=== PATIENT | female | born 1975 | race Hispanic/Latino ===

== ENCOUNTER → 2018-06-22 | Outpatient (CLI) | payer BC ==
[~2018-06-22] VITALS: Ht 12.7 cm; Wt 119.3 kg
== END | disposition home or self-care (01) ==
LOC: DTH 08:39
PROVIDERS: ATTEND Surgery
DX: I10 Essential (primary) hypertension (principal); E66.01 Morbid (severe) obesity due to excess calories
CPT/HCPCS: 97802

== ENCOUNTER → 2018-07-02 | Outpatient (CLI) | payer BC | END | disposition home or self-care (01) | LOC: DTH 08:40 | PROVIDERS: ATTEND Surgery | DX: I10 Essential (primary) hypertension (principal); E66.01 Morbid (severe) obesity due to excess calories | CPT/HCPCS: 97803 ==

== ENCOUNTER 2018-07-16 06:45 | Inpatient (IN) | payer BC ==
[2018-07-10 17:11] VITALS: BP 120/81
[~2018-07-16] VITALS: Ht 162.6 cm; Wt 114.8 kg
[2018-07-16] VITALS (21 sets, daily range): BP systolic 100–132; BP diastolic 60–86
[2018-07-16] MEDS: CEFOXITIN SODIUM 2 GM VIAL IVP SCH ×2 (06:00→09:38)
[~2018-07-16 06:45] MED LIST: ALBU8.5H8 IH; SUMA100T16 PO
[2018-07-16] MEDS ORDERED: GENTAMICIN SULFATE 80 MG/2 ML VIAL ONE (07:39)
[2018-07-16] MEDS ORDERED: LIDOCAINE HCL MDV 0.5% 50ML VIAL IJ ONE (07:39)
[2018-07-16] MEDS ORDERED: CLINDAMYCIN PHOSPHATE 150 MG/ML 6ML VIAL ONE (07:40)
[2018-07-16] MEDS ORDERED: BUPIVACAINE/EPI/PF 0.5% 30ML VIAL IJ ONE ×2 (07:40→09:58)
[2018-07-16] MEDS ORDERED: METHYLENE BLUE 10 MG/ML AMP ONE (07:40)
[2018-07-16] MEDS ORDERED: LACTATED RINGERS 1000ML 1,000 ML IV ONE (08:08)
[2018-07-16] MEDS ORDERED: SCOPOLAMINE HYDROBROMIDE 1 EACH ADH..PATCH TD ONE (08:37)
[2018-07-16] MEDS ORDERED: SCOPOLAMINE HYDROBROMIDE 1 EACH ADH..PATCH TD SCH (08:45)
[2018-07-16] MEDS ORDERED: KETAMINE 50MG/ML SYRINGE 50 MG/ML DISP.SYRIN IV ONE ×2 (08:56)
[2018-07-16] MEDS ORDERED: MELA5POW MC (08:58)
[2018-07-16] MEDS ORDERED: PROPOFOL 1000 MG/100 ML 100 ML IV ONE (08:59)
[2018-07-16] MEDS ORDERED: LIDOCAINE PF 2% 5ML ABBOJECT ONE (09:03)
[2018-07-16] MEDS ORDERED: PROPOFOL 10 MG/ML 20ML VIAL IV ONE (09:03)
[2018-07-16] MEDS ORDERED: ONDANSETRON HCL 4 MG/2 ML VIAL ONE (09:03)
[2018-07-16] MEDS ORDERED: DEXAMETHASONE SOD PHOSPHATE 10MG/ML 1ML VIAL ONE (09:03)
[2018-07-16] MEDS ORDERED: ROCURONIUM 10MG/1ML SYR 10 MG/ML ML ONE ×2 (09:03→10:02)
[2018-07-16] MEDS ORDERED: FENTANYL CITRATE PF 50 MCG/1 ML 5ML AMP IV ONE (09:04)
[2018-07-16] MEDS ORDERED: MIDAZOLAM HCL 1 MG/ML 2ML VIAL ONE (09:05)
[2018-07-16] MEDS ORDERED: HEPARIN SODIUM 5000UNIT/ML 1ML VIAL SQ SCH (09:15)
[2018-07-16] MEDS: CYANOCOBALAMIN (VITAMIN B-12) 1000 MCG/ML 1ML VIAL IM SCH (09:26)
[2018-07-16] MEDS ORDERED: FAMOTIDINE/PF 20 MG/2 ML VIAL IV ONE (09:44)
[2018-07-16] MEDS ORDERED: MAGNESIUM SULFATE 1 GM/2 ML VIAL ONE (09:54)
[2018-07-16] MEDS ORDERED: EPHEDRINE SULFATE 50 MG/ML AMPULE ONE (10:07)
[2018-07-16] MEDS ORDERED: NEOSTIGMINE 5MG/5ML SYR IV ONE (10:57)
[2018-07-16] MEDS ORDERED: GLYCOPYRROLATE 1 MG/5 ML SYRINGE ONE (10:57)
[2018-07-16] MEDS ORDERED: FENTANYL CITRATE PF 50 MCG/1 ML 2ML VIAL ONE (11:07)
[2018-07-16] MEDS ORDERED: MEPERIDINE-PF 25 MG/ML SYG ONE (11:52)
[2018-07-16] MEDS ORDERED: HYDROMORPHONE PCA 10MG/50 ML ( 0.2 MG/ML ) IV PRN (13:45)
[2018-07-16] MEDS ORDERED: NALOXONE HCL 0.4 MG/1 ML ML IVP PRN (13:45)
[2018-07-16] MEDS ORDERED: SUMATRIPTAN SUCCINATE 25 MG TABLET PO PRN (14:30)
[2018-07-16] MEDS ORDERED: ALBUTEROL SULFATE 0.083% 2.5 MG/3 ML INH IH PRN (14:30)
[2018-07-16] MEDS: ONDANSETRON HCL 4 MG/2 ML VIAL IVP PRN ×2 (14:50→21:26)
[2018-07-16] MEDS: D5LR-20 MEQ KCL 1000 ML 1,000 ML IV SCH (14:58)
[2018-07-16] MEDS ORDERED: FENTANYL CITRATE PF 50 MCG/1 ML 2ML VIAL IVP PRN (15:45)
[2018-07-16] MEDS ORDERED: MORPHINE SULFATE 5 MG/ML VIAL IVP PRN (15:45)
[2018-07-16] MEDS ORDERED: ONDANSETRON HCL 4 MG/2 ML VIAL IVP PRN (15:45)
[2018-07-16] MEDS ORDERED: CALDOLOR 800MG+NS 250ML 250 ML IV SCH (15:45)
[2018-07-16] MEDS: IBUPROFEN 800 MG TAB PO SCH (17:00)
[2018-07-16] MEDS: HEPARIN SODIUM 5000UNIT/ML 1ML VIAL SQ SCH (21:30)
[2018-07-17] MEDS: D5LR-20 MEQ KCL 1000 ML 1,000 ML IV SCH (01:25)
[2018-07-17 04:00] VITALS: BP 114/71
[2018-07-17 07:00] VITALS: BP 115/77
[2018-07-17] MEDS: IBUPROFEN 800 MG TAB PO SCH (08:00)
[2018-07-17] MEDS: HEPARIN SODIUM 5000UNIT/ML 1ML VIAL SQ SCH (09:00)
[2018-07-17] MEDS: CYANOCOBALAMIN (VITAMIN B-12) 1000 MCG/ML 1ML VIAL IM SCH (09:15)
== END 2018-07-17 11:30 | disposition home or self-care (01) | DRG 621 ==
LOC: DAH 06:45 → DAHIP 06:46 → DAH 06:46 → 4BH 12:40
PROVIDERS: ADMIT Surgery; ATTEND Surgery
PROC: 0DB64Z3 Excision of Stomach, Percutaneous Endoscopic Approach, Vertical (ICD-10-PCS; principal; 2018-07-16 09:25)
PROC: 0DNU4ZZ Release Omentum, Percutaneous Endoscopic Approach (ICD-10-PCS; 2018-07-16 09:25)
DX: E66.01 Morbid (severe) obesity due to excess calories (principal); K66.0 Peritoneal adhesions (postprocedural) (postinfection); I10 Essential (primary) hypertension; Z68.41 Body mass index [BMI] 40.0-44.9, adult
CPT/HCPCS: 36415; 84702; 86850; 86900; 86901; 86922; 88307; 93005; 94664; 96372; A4218; A4606; J0694; J1100; J1170; J1580; J1644; J1741; J2001; J2175; J2250; J2270; J2405; J2704; J2710; J3010; J3420; J3475; J3480; J3490; J7030; J7120; Q9968